=== PATIENT | female | born 1960 | race Caucasian/White ===

== ENCOUNTER 2018-05-20 01:10 | Emergency (ER) | payer BC ==
[~2018-05-20] VITALS: Ht 167.6 cm; Wt 71.0 kg
[2018-05-20 01:59] LABS: BASOPHILS % 0.4 % (0.0-2.0); EOSINOPHILS % 1.2 % (0.0-5.0); HEMATOCRIT. 41.5 % (36.0-48.0); LYMPHOCYTES % 29.3 % (20.0-50.0); MEAN CORPUSCULAR HEMOGLOBIN 28.9 pg (28.0-32.0); MEAN CORPUSCULAR VOLUME 85.7 fL (81.0-99.0); MEAN PLATELET VOLUME 7.3 fl (7.4-10.4); MONOCYTES % 5.2 % (2.0-8.0); NEUTROPHILS % 63.9 % (40.0-76.0); PLATELET 332 x1000/uL (130-400); RED BLOOD CELL COUNT 4.84 mill/uL (4.2-5.4); RED CELL DISTRIBUTION WIDTH 13.5 % (11.6-14.6)
[2018-05-20 02:00] LABS: CLARITY URINE CLEAR (CLEAR); COLOR URINE YELLOW (YELLOW); KETONES URINE NEGATIVE (NEGATIVE); LEUKOCYTE ESTERASE URINE NEGATIVE (NEGATIVE); NITRITE URINE NEGATIVE (NEGATIVE); OCCULT BLOOD URINE 1+ (NEGATIVE); PH URINE 7.5 (4.5-8.0); PROTEIN URINE TRACE (NEGATIVE); SPECIFIC GRAVITY URINE 1.005 (1.005-1.030); UROBILINOGEN URINE 0.2 E.U./dL (0.2-1.0)
[2018-05-20 02:03] LABS: CHLORIDE 112 mEq/L (98-107)
[2018-05-20 02:08] LABS: ETHANOL BLOOD < 10 mg/dL
[2018-05-20 02:17] LABS: *AMPHETAMINES SCREEN URINE NEGATIVE (NEGATIVE); *BARBITURATES SCREEN URINE NEGATIVE (NEGATIVE); *BENZODIAZEPINES SCREEN URINE NEGATIVE (NEGATIVE); *COCAINE SCREEN URINE NEGATIVE (NEGATIVE)
[2018-05-20 02:18] LABS: CANNABINOID URINE SCREEN NEGATIVE (NEGATIVE); METHADONE URINE SCREEN NEGATIVE (NEGATIVE); OPIATES URINE SCREEN NEGATIVE (NEGATIVE); PHENCYCLIDINE URINE SCREEN NEGATIVE (NEGATIVE)
[2018-05-20] MEDS ORDERED: ACETAMINOPHEN 500MG TABLET PO ONE (02:45)
[2018-05-20] MEDS ORDERED: POTASSIUM CHLORIDE 20MEQ TABLET SR PO ONE (08:45)
[2018-05-20 14:41] VITALS: BP 132/68
== END 2018-05-20 14:57 | disposition home or self-care (01) ==
LOC: ER 01:55
DX: T46.5X2A Poisoning by other antihypertensive drugs, intentional self-harm, initial encounter (principal); T45.0X2A Poisoning by antiallergic and antiemetic drugs, intentional self-harm, initial encounter; F33.3 Major depressive disorder, recurrent, severe with psychotic symptoms; Z63.0 Problems in relationship with spouse or partner; Y92.89 Other specified places as the place of occurrence of the external cause
CPT/HCPCS: 36415; 80305; 80307; 80320; 82140; 93005; 99284; G0480